=== PATIENT | female | born 1995 | race American Indian/Alaskan Native ===

== ENCOUNTER → 2024-03-31 18:30 | Outpatient (CLI) | payer OTHER, MEDICAID, SELFPAY ==
--- NOTE | 2024-03-31 18:32 | DI.RAD.S_ITS ---
PROCEDURE: XR KNEE LT 3V INDICATIONS: Left knee injury TECHNIQUE: 3 views of the knee were acquired. COMPARISON: None. FINDINGS: On the patellar sunrise image there is a subtle lucent groove in the anterior medial aspect of the patella which may represent normal variant bipartite patella or related to old healed fracture or other process. Suspicion of mild knee joint effusion. No radiographic evidence of acute fracture, dislocation or high attenuation soft tissue foreign body. Joint spaces are normal without osteophytes. IMPRESSION: Suspicion of mild knee joint effusion. Bipartite patella versus old healed patellar fracture. No radiographic evidence of acute fracture. If symptoms persist or worsen, or there is high clinical suspicion of left knee abnormality, MRI could be performed. Dictated by: Matti Squires M.D. on 03/31/2024 at 19:29 Approved by: Matti Squires M.D. on 03/31/2024 at 19:33
== END ==
LOC: RAD 18:32
PROVIDERS: Referring Provider Nurse Practitioner Family; Visit Provider Nurse Practitioner Family
DX: S86.912A Strain of unspecified muscle(s) and tendon(s) at lower leg level, left leg, initial encounter (principal); X58.XXXA Exposure to other specified factors, initial encounter
CPT/HCPCS: 73562

== ENCOUNTER → 2024-04-08 15:46 | Outpatient (CLI) | payer OTHER, MEDICAID, SELFPAY ==
--- NOTE | 2024-04-08 15:48 | DI.MRI.S_ITS ---
PROCEDURE: MR KNEE LT WO CON INDICATIONS: ACUTE PAIN OF LEFT KNEE/INSTABILITY/EFFUSION TECHNIQUE: Noncontrast sagittal PD fast spin echo and T2 fast spin echo with fat saturation, sagittal 3-D FLASH with fat saturation; coronal T1 spin echo and PD fast spin echo with fat saturation, and axial PD fast spin echo with fat saturation through the knee. COMPARISON: [facility], CR, XR KNEE LT 3V, 03/31/2024, 18:44. FINDINGS: Image quality: Excellent. Menisci: The medial and lateral menisci are intact The meniscal root ligaments appear intact. Cruciate ligaments: The anterior cruciate ligament appears thickened with intrasubstance T2 hyperintense signal in its mid to distal portion. The posterior cruciate ligament is intact. Medial structures: The medial collateral ligament appears intact. Visualized portions of the pes anserinus tendons appear normal. No abnormal bursal fluid. Lateral structures: The lateral collateral ligament, long and short heads of the biceps femoris tendon appear intact. The popliteus tendon appears normal. Iliotibial band appears normal. Anterior structures: The quadriceps and patellar tendons appear intact. There is suggestion of prior medial patellofemoral ligament repair with postsurgical changes. No patellofemoral ligament rupture. Patellar alignment is normal. Bones and cartilage: Postsurgical changes are noted within patella with marrow edema seen in mid to inferior portion of patella and significant overlying chondromalacia involving lateral facet of patella cartilage. The cartilage of the medial and lateral femorotibial compartments appears normal in thickness. Joint space: There is small knee joint fluid. No Barnard's cyst. Normal appearing synovial plicae are incidentally noted. IMPRESSION: 1. Suggestion of prior medial patellofemoral ligament repair with postsurgical changes. 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 No displaced fracture. No other area of abnormal marrow signal. Articulating cartilages in medial and lateral femoral tibial compartments are normal in thickness. 2. Small joint effusion, no loose bodies. 3. Suggestion of low-grade ACL sprain/intrasubstance partial-thickness tear. No ACL rupture. The PCL is intact. 4. No evidence of focal meniscal tear. Dictated by: Boy Lynn M.D. on 04/09/2024 at 9:53 Approved by: Boy Lynn M.D. on 04/09/2024 at 10:01
== END ==
PROVIDERS: PCP Family Medicine; Referring Provider Nurse Practitioner Family; Visit Provider Nurse Practitioner Family
DX: M23.52 Chronic instability of knee, left knee (principal); M25.562 Pain in left knee; M25.462 Effusion, left knee; M22.42 Chondromalacia patellae, left knee
CPT/HCPCS: 73721

== ENCOUNTER 2024-08-04 20:40 | Emergency (ER) | payer OTHER, MEDICAID, SELFPAY ==
[2024-08-04 20:46] VITALS: BP 119/66; PULSE 110; RESP 16; TEMP 36.6; O2SAT 99; BMI 21.4
--- NOTE | 2024-08-04 20:51 | EKG_ITS ---
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
[2024-08-04 21:32] LABS: Add Manual Diff / Slide Review NO; Basophils Absolute Auto 0 /uL (0-100); Basophils Percent Auto 0.3 % (0-2); Eosinophils Absolute Auto 0 /uL (0-450); Eosinophils Percent Auto 0.3 % (2-4); Hematocrit 37.4 % (36-46); Hemoglobin 12.5 g/dL (12.0-16.0); Lymphocytes Absolute Auto 1500 /uL (1100-4500); Lymphocytes Percent Auto 10.4 % (25-40); Mean Corpuscular HGB Conc 33.4 % (30-36); Mean Corpuscular Hemoglobin 28.6 PG (26-34); Mean Corpuscular Volume 85.7 fL (80-100); Monocytes Absolute Auto 600 /uL (0-900); Monocytes Percent Auto 4.5 % (3-14); Neutrophils Absolute Auto 12200 /uL (1500-7000); Neutrophils Percent Auto 84.5 % (50-75); Platelet Count 382 X10^3/uL (150-400); Red Blood Cell Count 4.37 X10^6/uL (4.0-5.2); Red Cell Distribution Width 14.3 % (11.6-14.8); White Blood Cell Count 14.5 X10^3/uL (4.5-11.0)
[2024-08-04 21:41] LABS: Alanine Aminotransferase 17 IU/L (<35); Albumin 4.5 g/dL (3.5-5.0); Albumin Globulin Ratio 1.6 (1.0-2.8); Alkaline Phosphatase 61 U/L (38-126); Aspartate Aminotransferase 25 IU/L (14-36); BUN Creatinine Ratio 13.5 (6-22); Bilirubin Total 0.4 mg/dL (0.2-1.3); Blood Urea Nitrogen 14 mg/dL (7-17); Calcium 9.4 mg/dL (8.4-10.2); Carbon Dioxide 29 mmol/L (22-32); Chloride 101 mmol/L (98-107); Estimated Glomerular Filt Rate > 60 mL/min (>60); Globulin 2.8 g/dL (1.7-4.1); Glucose 137 mg/dL (70-100); HEMOLYSIS < 15 (0-50); Lipase 38 U/L (23-300); Potassium 4.4 mmol/L (3.4-5.1); Sodium 135 mmol/L (137-145); Total Protein 7.3 g/dL (6.3-8.2)
[2024-08-04] MEDS: ONDANSETRON 4 MG/2 ML INJ IV (21:58)
--- NOTE | 2024-08-04 22:56 | ED_ITS ---
HPI - Nausea/Vomiting/Diarrhea General Chief complaint: Abdominal Pain Stated complaint: lightheaded/nauseous since blood donation Time Seen by Provider: 08/04/24 21:49 Source: patient Mode of arrival: Ambulatory History of Present Illness HPI Narrative: 28-year-old female without any significant past medical history comes into the ED from home for evaluation nausea vomiting intermittent nature since 3:00 p.m. today after donating whole blood. States that she has done in the whole blood in the past has had some mild nausea and vomiting but never has had this symptoms so severe. She states that when she donated blood she did have an episode nausea and vomiting felt a little bit better went home had persistent symptoms called the hotline and was instructed come into the ED. patient denies any other symptoms such as headache visual disturbances chest pain shortness of breath fever chills abdominal pain or any other GI/ symptoms time. Not on any blood thinners. Related Data Previous Rx's Medication Instructions Recorded ondansetron 4 mg disintegrating 4 mg PO Q8H PRN nausea and 08/04/24 tablet vomiting 5 days #15 tabs Allergies Allergy/AdvReac Type Severity Reaction Status Date / Time No Known Drug Allergies Allergy Unverified 03/31/24 18:14 Review of Systems Review of Systems Narrative: General: Denies fever, chills, weight loss HEENT: Denies headache, eye drainage, eye irritation, head trauma, sore throat, voice change Cardiovascular: Denies any chest pain, palpitations, shortness of breath, tachycardia Respiratory: Denies any shortness of breath, cough, wheeze, stridor GI/: Positive nausea, vomiting Denies any abdominal pain diarrhea, bright red blood per rectum, melanotic stools, urinary frequency, urinary retention, dysuria, hematuria MSK: Denies any joint pain, muscle pains, swelling Skin: Denies any rashes, lesions, discoloration Neuro: Denies any headache, lightheadedness, dizziness, fainting, weakness Psych: Denies SI/HI Patient History Social History Smoking Status: Never smoker Smoking Status: Never smoker Exam Narrative Exam Narrative: General: Cooperative, comfortable, well-developed, not in acute distress HEENT: Normocephalic, atraumatic, PERRLA, normal sclera, eyelids normal, Neck: Active full range of motion, atraumatic Chest: Normal to inspection, negative crepitus, no overlying erythema ecchymosis Respiratory: Normal respiratory effort, not in acute respiratory distress, clear to auscultation bilaterally negative cough, wheeze, tachypnea, rhonchi, rales Cardiology: Regular rate rhythm negative gallop, murmur, rubs GI/: Normal to inspection, soft, nonrigid, no tenderness to palpation, exam deferred MSK: Full range of active range of motion of all 4 extremities, atraumatic Skin: No rashes lesions noted Neuro: Alert awake oriented x3, moves all 4 extremities spontaneously, cranial nerves intact, able to answer all questions appropriately follows commands appropriately Psych: Cooperative, negative suicidal or homicidal ideations Initial Vital Signs Initial Vital Signs: Vital Signs Temperature 97.8 F 08/04/24 20:46 Pulse Rate 110 H 08/04/24 20:46 Respiratory Rate 16 08/04/24 20:46 Blood Pressure 119/66 08/04/24 20:46 Pulse Oximetry 99 08/04/24 20:46 Oxygen Delivery Method Room Air 08/04/24 20:46 Course Orders Ordered: ED Orders 08/04/24 20:51 EKG-12 Lead Stat 08/04/24 21:20 Complete Blood Count AUTO DIFF Stat Comprehensive Metabolic Panel Stat Lipase Stat Ondansetron HCl (Ondansetron 4 Mg/2 Ml Inj) 4 mg IV NOW PRN PRN Reason: Nausea And Vomiting Last Admin: 08/04/24 21:58 Dose: 4 mg Documented By: Ondansetron HCl (Ondansetron 4 Mg Odt) 4 mg PO NOW PRN PRN Reason: Nausea And Vomiting Vital Signs Vital signs: Vital Signs - 8 hr 08/04/24 20:46 Temperature 97.8 F Pulse Rate 110 H Respiratory Rate 16 Blood Pressure 119/66 Pulse Oximetry 99 Oxygen Delivery Method Room Air MDM - Nausea/Vomiting/Diarrhea Differential Diagnosis Differential diagnosis: Likely dehydration and other (Electrolyte abnormality) Lab Data 08/04/24 21:20 08/04/24 21:20 Labs: Lab Results 08/04/24 Range/Units 21:20 WBC 14.5 H (4.5-11.0) X10^3/uL RBC 4.37 (4.0-5.2) X10^6/uL Hgb 12.5 (12.0-16.0) g/dL Hct 37.4 (36-46) % MCV 85.7 (80-100) fL MCH 28.6 (26-34) PG MCHC 33.4 (30-36) % RDW 14.3 (11.6-14.8) % Plt Count 382 (150-400) X10^3/uL Neut % (Auto) 84.5 H (50-75) % Lymph % (Auto) 10.4 L (25-40) % [place] % (Auto) 4.5 (3-14) % Eos % (Auto) 0.3 L (2-4) % Baso % (Auto) 0.3 (0-2) % Neut # (Auto) 03426 H (7639-6128) /uL Lymph # (Auto) 1500 (4229-4468) /uL [place] # (Auto) 600 (0-900) /uL Eos # (Auto) 0 (0-450) /uL Baso # (Auto) 0 (0-100) /uL Sodium 135 L (137-145) mmol/L Potassium 4.4 (3.4-5.1) mmol/L Chloride 101 (98-107) mmol/L Carbon Dioxide 29 (22-32) mmol/L BUN 14 (7-17) mg/dL Creatinine 1.04 (0.52-1.04) mg/dL Estimated GFR > 60 (>60) mL/min BUN/Creatinine Ratio 13.5 (6-22) Glucose 137 H (70-100) mg/dL Calcium 9.4 (8.4-10.2) mg/dL Total Bilirubin 0.4 (0.2-1.3) mg/dL AST 25 (14-36) IU/L ALT 17 (<35) IU/L Alkaline Phosphatase 61 (38-126) U/L Total Protein 7.3 (6.3-8.2) g/dL Albumin 4.5 (3.5-5.0) g/dL Globulin 2.8 (1.7-4.1) g/dL Albumin/Globulin Ratio 1.6 (1.0-2.8) Lipase 38 (23-300) U/L Point of Care Testing Test Results Negative Urine Dip Bedside Urine Glucose Negative Bedside Urine Bilirubin - Negative Bedside Urine Ketone - Negative Urine Specific [place] 1.015 Bedside Urine Occult Blood - Negative Bedside Urine pH 6 Bedside Urine Protein - Negative Bedside Urine Urobilinogen - Negative Bedside Urine Nitrite - Negative Bedside Urine Leukocytes - Negative Esterase MDM Narrative Medical decision making narrative: 28-year-old female without any significant past medical history comes in for evaluation of nausea and vomiting after blood transfusion earlier today. Patient had cessation of symptoms after administration of IV Zofran here in the emergency department, patient did have lab work performed, noted to have mild leukocytosis of 14.5 most likely reactive secondary to symptoms as well as recent blood donation. Otherwise lab work unremarkable. Patient did have EKG for completeness sake, nonischemic no arrhythmia she was given strict return precautions she verbalized understanding of this and agrees to being discharged home with outpatient follow up. Discharge Plan Departure Patient Disposition: Home Clinical Impression: Nausea & vomiting Activity Restrictions/Additional Instructions: Please read the discharge instructions sheet carefully and bring all papers to all doctor follow-up visits, as it may contain information that your doctor may want to see. Disease processes change and evolve, if your symptoms worsen or if you develop any new symptoms that are concerning to you please return for evaluation. Your evaluation today does not show any evidence of any life- threatening/serious illnesses requiring admission to the hospital or surgery. Please follow-up with your doctor for re-evaluation in approximately 1 day. Seek immediate medical attention for any worrisome symptoms. *If you do not have a primary care provider please contact the [facility] Resource line at [phone]. They will ask some questions about your medical history and help get you set up with a doctor in the community. Prescriptions: New ondansetron 4 mg tablet,disintegrating 4 mg PO Q8H PRN (Reason: nausea and vomiting) 5 Days Qty: 15 0RF Referrals: Tiffany Cobian MD [Primary Care Provider] - Stand Alone Forms: Patient Portal/API/Survey
[2024-08-04 23:04] VITALS: BP 111/62; PULSE 85; RESP 18; O2SAT 98
== END 2024-08-04 23:09 | disposition home or self-care (01) ==
PROVIDERS: Emergency Provider Student in an Organized Health Care Education/Training Program; PCP Family Medicine
DX: R11.2 Nausea with vomiting, unspecified (principal)
CPT/HCPCS: 36415; 80053; 81003; 81025; 83690; 85025; 93005; 96374; 99284; J2405